=== PATIENT | male | born 1955 | race Caucasian/White ===

== ENCOUNTER 2018-04-10 11:19 | Emergency (ER) | payer MEDICARE, BC ==
[~2018-04-10 11:19] MED LIST: AMOX-362 PO; FENO48TA PO; FLUO-177 PO; LORA5SOL56 PO; PARO-243 PO
[2018-04-10 11:23] VITALS: BP 176/103
[2018-04-10] MEDS ORDERED: HYDR-4228 PO (11:26)
[2018-04-10] MEDS ORDERED: LORA-802 PO (11:26)
--- NOTE | 2018-04-10 11:30 | ER Report ---
History and Physical Time Seen By MD: 11:29 Hx. of Stated Complaint: WORSENING ANXIETY AFTER CHANGING OF MEDICATION. HPI/ROS CHIEF COMPLAINT: Anxiety HISTORY OF PRESENT ILLNESS: 62-year-old male patient presents to emergency room with complaint of anxiety. Patient states that he's been having anxiety past 40 years. He states that he has been taking buspirone with no improvement. He states that that is worsened since he started that on Saturday. States he's been using hydroxyzine past seems to have been very effective. States that he is switching from hydroxyzine to buspirone due to the cost medication. Patient denies having any suicidal ideation. Patient states that he would like a shot of something, as he was seen by his primary care provider and referred to the emergency room as he did not have anything available in the office to medicate him with. Allergies: Coded Allergies: codeine (Verified Allergy, Unknown, 07/01/17) prednisone (Verified Allergy, Unknown, 07/01/17) Home Meds Reported Medications Loratadine (CLARITIN) 10 Mg Tablet, 10 MG PO DAILY 04/10/18 Hydroxyzine Hcl (HYDROXYZINE HCL) 50 Mg Tablet, 100 MG PO QID 04/10/18 Fenofibrate Nanocrystallized (FENOFIBRATE) 48 Mg Tablet, 48 MG PO QDAY 07/01/17 Discontinued Reported Medications Loratadine (CLARITIN) 5 Mg/5 Ml Solution, 5 MG PO 12/17/16 Paroxetine Hcl (PAXIL) 20 Mg Tablet, 40 MG PO QDAY, TAB 12/17/16 Fluoxetine Hcl (FLUOXETINE HCL) 20 Mg Capsule, 20 MG PO QDAY, CAPSULE 12/17/16 Past Medical/Surgical History Patient has a past medical history of hyperlipidemia, anxiety. Patient has surgical history of carpal tunnel, tonsillectomy. Reviewed Nurses Notes: Yes Constitutional Vital Sign - Last 24 Hours 04/10/18 11:23 Temp 98.0 Pulse 104 Resp 22 B/P (MAP) 176/103 Pulse Ox 97 O2 Delivery Room Air Physical Exam General appearance: Alert no distress. Patient is tachypneic and speech is forced. He does not appear to be short of breath or having difficulty breathing. Respiratory: Chest is non tender, lungs are clear to auscultation. Cardiac: Regular rate and rhythm Psych: Patient is anxious, he is tachypneic, he is having a hard time talking as he is concerned about getting something out of his anxiety. DIFFERENTIAL DIAGNOSIS: After history and physical exam differential diagnosis was considered for anxiety. Medical Decision Making ED Course/Re-evaluation ED Course Patient was admitted to an exam room, history and physical were obtained. Differential diagnoses were considered. On examination lungs are clear, heart is regular, abdomen soft nontender. Patient does appear to be quite anxious. He is tachypneic, is having a hard time sitting still. Patient was given an IM dose of Ativan 2 mg. After that he seemed to calm down considerably. On reevaluation patient states he's feeling significantly better and would like to go home. We will go ahead and discharge patient home at this time. He is to take his hydroxyzine when he returns home. He is to go ahead and continue with normal dosing as previously set up with him in his primary care provider. I discussed this with the patient who verbalized understanding and agreement with plan. Decision to Disposition Date: Apr 10, 2018 Decision to Disposition Time: 12:04 Depart Departure Latest Vital Signs Vital Signs Date Time Temp Pulse Resp B/P (MAP) Pulse Ox O2 Delivery O2 Flow Rate FiO2 04/10/18 11:23 98.0 104 22 176/103 97 Room Air Impression: Primary Impression: Anxiety Condition: Improved Disposition: HOME OR SELF-CARE Patient Instructions: Anxiety (ED) Additional Instructions: Continue with the Hydroxyzine. Go ahead and take a dose when you get home. Follow up with Dr. Garcia next week to discuss how the therapy is going. Return to the ER if condition worsens. Increase exercise and things that help with your anxiety. Monitor for triggers, and keep a journal about anxiety attacks looking for possible triggers. JONAH RESTREPO Apr 10, 2018 11:30
[2018-04-10] MEDS ORDERED: LORazepam 2 MG/ML VIAL IM ONE (11:35)
== END 2018-04-10 12:15 | disposition home or self-care (01) ==
LOC: ER 11:22
DX: F41.9 Anxiety disorder, unspecified (principal); E78.5 Hyperlipidemia, unspecified; Z79.899 Other long term (current) drug therapy
CPT/HCPCS: 96372; 99283; J2060